=== PATIENT | female | born 1990 | race Two or more races ===

== ENCOUNTER 2019-08-04 09:39 | Emergency (ER) | payer MEDICAID, OTHER ==
[~2019-08-04] VITALS: Ht 154.9 cm; Wt 152.0 kg
[2019-08-04 09:53] VITALS: BP 144/88
[2019-08-04] MEDS ORDERED: cefTRIAXone SOD 1,000 MG VL IM ONE ×2 (12:00)
[2019-08-09] MEDS ORDERED: METF-370 PO (00:04)
[2019-08-09] MEDS ORDERED: IBUP800T24 PO (00:04)
[2019-08-09] MEDS ORDERED: CEPH500C PO (00:04)
== END 2019-08-04 12:37 | disposition home or self-care (01) ==
LOC: ER 09:39
DX: L03.311 Cellulitis of abdominal wall (principal)
CPT/HCPCS: 96372; 99283; J0696

== ENCOUNTER 2020-05-18 17:19 | Emergency (ER) | payer MEDICAID ==
[~2020-05-18 17:19] MED LIST: CEPH500C PO; IBUP800T24 PO; METF-370 PO
== END 2020-05-18 18:53 | disposition left against medical advice (07) ==
LOC: ER 17:19
DX: M79.602 Pain in left arm (principal); Z53.21 Procedure and treatment not carried out due to patient leaving prior to being seen by health care provider

== ENCOUNTER 2022-03-24 12:28 | Inpatient (IN) | payer MEDICAID ==
[~2022-03-24] VITALS: Ht 154.9 cm; Wt 151.6 kg
[2022-03-24 12:28] VITALS: BP 136/83
[~2022-03-24 12:28] MED LIST changes: -IBUP800T24 PO; +IBUP800T27 PO
[2022-03-24 13:39] LABS: Urine Bacteria NONE SEEN /hpf (None Seen); Urine Blood Negative /uL (Negative); Urine Mucus FEW (None Seen); Urine Specific Gravity 1.032 (1.001-1.035); Urine WBC 31 /hpf (0 - 5)
[2022-03-24 14:37] LABS: Basophils # (auto) 0.1 10 ^3/uL (0-0.2); Basophils % (auto) 0.6 % (0.0-2.0); Eosinophils # (auto) 0 10 ^3/uL (0-0.8); Eosinophils % (auto) 0.3 % (0.0-7.0); Hematocrit 39.6 % (36.0-46.0); Lymphocytes # (auto) 1.3 10 ^3/uL (0.4-5.4); Lymphocytes % (auto) 13.3 % (10.0-50.0); Mean Corpuscular Hemoglobin 27.7 pg (28.0-32.0); Mean Corpuscular Hgb Conc. 32.9 g/dL (32.0-36.0); Mean Corpuscular Volume 84.1 fL (80.0-100.0); Monocytes # (auto) 0.7 10 ^3/uL (0-1.3); Monocytes % (auto) 7.1 % (0.0-12.0); Neutrophils # (auto) 7.6 10 ^3/uL (1.6-8.6); Neutrophils % (auto) 78.7 % (37.0-80.0); Red Blood Cells 4.71 10^6/uL (4.0-5.20); Red Cell Distribution Width 13.1 % (11.8-14.3); White Blood Cell 9.7 10^3/uL (4.4-10.8)
[2022-03-24 14:53] LABS: Albumin 3.5 g/dL (3.4-5.0); Calcium 9.4 mg/dL (8.5-10.1); Potassium 3.6 mmol/L (3.5-5.1)
[2022-03-24 14:56] LABS: BUN/Creatinine Ratio 9.3
[2022-03-24 14:59] LABS: Bilirubin, Total 0.6 mg/dL (0.2-1.0)
[2022-03-24] MEDS ORDERED: SODIUM CHLORIDE 0.9% 1,000 ML IVB ONE (15:30)
[2022-03-24] MEDS ORDERED: KETOROLAC TROMETH 30 MG/ML 1ML VIAL IV ONE (15:30)
[2022-03-24] MEDS ORDERED: cefTRIAXone 1GM/50ML D5W 50 ML IV ONE (19:45)
[2022-03-24] MEDS ORDERED: SODIUM CHLORIDE 0.9% 1,000 ML IV SCH (20:15)
[2022-03-24] MEDS ORDERED: SODIUM CHLORIDE 0.9% 1,000 ML IV ONE (20:15)
[2022-03-24] MEDS ORDERED: MORPHINE SULFATE INJ 2 MG/ml SYRG IV PRN (20:15)
[2022-03-24] MEDS ORDERED: DOCUSATE SOD 100 MG CAP PO PRN (20:15)
[2022-03-24] MEDS ORDERED: ONDANSETRON HCL 4 MG/2 ML VIAL IV PRN (20:15)
[2022-03-24] MEDS ORDERED: DEXTROSE (50%) 50ML SYRG IV PRN ×2 (20:15→22:15)
[2022-03-25] MEDS ORDERED: ACCU-CHEK COMFORT CURVE STRIP VI SCH ×2
[2022-03-25] MEDS ORDERED: DICYCLOMINE HCL (10MG/ML) 2 ML AMPULE IM PRN
[2022-03-25] MEDS ORDERED: InsuLIN REG 1unit/0.01ml Soln (100units/ml) SC SCH ×2
[2022-03-25] MEDS ORDERED: cefTRIAXone 1GM/50ML D5W 50 ML IV SCH (09:00)
[2022-03-25] MEDS ORDERED: PANTOPRAZOLE 40 MG/10 ML VIAL INJ IV SCH (10:00)
[2022-03-25] MEDS ORDERED: ENOXAPARIN SOD 40 MG/0.4 ML SYRINGE SC SCH (10:00)
== END 2022-03-25 01:38 | disposition left against medical advice (07) | DRG 282 ==
LOC: ER 12:28 → OVERFLOW 20:18
PROVIDERS: ADMIT Nurse Practitioner Family; ATTEND Nurse Practitioner Family
DX: K85.90 Acute pancreatitis without necrosis or infection, unspecified (principal); N13.6 Pyonephrosis; K80.20 Calculus of gallbladder without cholecystitis without obstruction; N83.201 Unspecified ovarian cyst, right side; Z68.44 Body mass index [BMI] 60.0-69.9, adult; E11.9 Type 2 diabetes mellitus without complications; E66.01 Morbid (severe) obesity due to excess calories; E86.0 Dehydration
CPT/HCPCS: 36415; 74176; 76705; 80053; 81001; 82150; 82962; 83036; 83690; 85025; 96361; 96374; G0378; J1885

== ENCOUNTER 2022-03-28 22:11 | Emergency (ER) | payer MEDICAID ==
[~2022-03-28] VITALS: Ht 154.9 cm; Wt 152.4 kg
[2022-03-28] MEDS ORDERED: ACETAMINOPHEN 325 MG TAB PO ONE (23:00)
[2022-03-29] MEDS ORDERED: LIDOCAINE 1% HCL (LOCAL ANESTH.) INJ 20ML MDV ID ONE (07:00)
[2022-03-29] MEDS ORDERED: cefTRIAXone SOD 1,000 MG VL IM ONE (07:00)
[2022-03-29] MEDS ORDERED: AZIT500T66 PO (07:15)
[2022-03-29] MEDS ORDERED: ACET-1080 PO (07:15)
[2022-03-29] MEDS ORDERED: BENZ100C19 PO (07:15)
[2022-03-29 07:24] VITALS: BP 126/69
== END 2022-03-29 07:27 | disposition home or self-care (01) ==
LOC: ER 22:11
DX: J03.90 Acute tonsillitis, unspecified (principal); E11.9 Type 2 diabetes mellitus without complications; Z20.822 Contact with and (suspected) exposure to COVID-19
CPT/HCPCS: 36415; 82962; 87426; 87804; 96372; 99283; J0696; J2001

== ENCOUNTER 2022-09-23 13:22 | Inpatient (IN) | payer MEDICAID ==
[~2022-09-23] VITALS: Ht 154.9 cm; Wt 154.4 kg
[~2022-09-23 13:22] MED LIST changes: +ACET-1080 PO; +AZIT500T66 PO; +BENZ100C19 PO
[2022-09-23 14:42] LABS: Basophils # (auto) 0.1 10 ^3/uL (0-0.2); Eosinophils # (auto) 0.1 10 ^3/uL (0-0.8); Monocytes # (auto) 0.6 10 ^3/uL (0-1.3); Monocytes % (auto) 6.6 % (0.0-12.0); Neutrophils # (auto) 5.2 10 ^3/uL (1.6-8.6); Nucleated Red Blood Cells % 0.1 %
[2022-09-23 14:43] LABS: Eosinophils % (auto) 1.4 % (0.0-7.0); Hematocrit 37.3 % (36.0-46.0); Hemoglobin 11.8 g/dL (12.2-16.2); Lymphocytes # (auto) 2.4 10 ^3/uL (0.4-5.4); Mean Corpuscular Hemoglobin 24.7 pg (28.0-32.0); Mean Corpuscular Hgb Conc. 31.5 g/dL (32.0-36.0); Mean Corpuscular Volume 78.4 fL (80.0-100.0); Red Blood Cells 4.75 10^6/uL (4.0-5.20); Red Cell Distribution Width 15.7 % (11.8-14.3); White Blood Cell 8.4 10^3/uL (4.4-10.8)
[2022-09-23 15:00] LABS: Albumin 3.3 g/dL (3.4-5.0); Calcium 9.4 mg/dL (8.5-10.1); Potassium 3.4 mmol/L (3.5-5.1)
[2022-09-23 15:04] LABS: BUN/Creatinine Ratio 14.7 (10.0-20.0); Bilirubin, Total 0.4 mg/dL (0.2-1.0); Total Protein 7.8 g/dL (6.4-8.2)
[2022-09-23] MEDS ORDERED: SODIUM CHLORIDE 0.9% 1,000 ML IV ONE ×2 (16:00)
[2022-09-23] MEDS ORDERED: TAMSULOSIN HYDROCHLORIDE 0.4 MG CAP PO ONE (16:00)
[2022-09-23] MEDS ORDERED: KETOROLAC TROMETH 30 MG/ML 1ML VIAL IV ONE (16:00)
[2022-09-23] MEDS ORDERED: FUROSEMIDE 40 MG/4 ML VIAL IV ONE (16:00)
[2022-09-23] MEDS ORDERED: MORPHINE SULFATE INJ 2 MG/ml SYRG IV PRN ×2 (16:45)
[2022-09-23] MEDS ORDERED: ACETAMINOPHEN 325 MG TAB PO PRN (16:45)
[2022-09-23] MEDS ORDERED: NITROGLYCERIN 0.4 MG SL TAB SL PRN (16:45)
[2022-09-23] MEDS ORDERED: KETOROLAC TROMETH 30 MG/ML 1ML VIAL IV PRN (16:45)
[2022-09-23] MEDS ORDERED: HYDROcodone-ACET 5/325MG TAB PO PRN (16:45)
[2022-09-23] MEDS ORDERED: TEMAZEPAM 15 MG CAP PO PRN (16:45)
[2022-09-23] MEDS: SODIUM CHLORIDE 0.9% 1,000 ML IV SCH (17:26)
[2022-09-23 20:41] LABS: Urine Bacteria FEW /hpf (None Seen); Urine Blood TRACE /uL (Negative); Urine Hyaline Cast FEW /lpf (0 - 2); Urine Specific Gravity 1.007 (1.001-1.035); Urine WBC 2 /hpf (0 - 5)
[2022-09-24] MEDS: SODIUM CHLORIDE 0.9% 1,000 ML IV SCH ×3 (00:53→18:16)
[2022-09-24 06:01] LABS: Basophils # (auto) 0.1 10 ^3/uL (0-0.2); Basophils % (auto) 0.7 % (0.0-2.0); Eosinophils # (auto) 0.1 10 ^3/uL (0-0.8); Eosinophils % (auto) 1.1 % (0.0-7.0); Hematocrit 32.7 % (36.0-46.0); Lymphocytes # (auto) 1.5 10 ^3/uL (0.4-5.4); Lymphocytes % (auto) 16.9 % (10.0-50.0); Mean Corpuscular Hemoglobin 25.7 pg (28.0-32.0); Mean Corpuscular Hgb Conc. 33.5 g/dL (32.0-36.0); Mean Corpuscular Volume 76.7 fL (80.0-100.0); Monocytes # (auto) 0.4 10 ^3/uL (0-1.3); Monocytes % (auto) 5.1 % (0.0-12.0); Neutrophils # (auto) 6.7 10 ^3/uL (1.6-8.6); Neutrophils % (auto) 76.2 % (37.0-80.0); Red Blood Cells 4.26 10^6/uL (4.0-5.20); White Blood Cell 8.7 10^3/uL (4.4-10.8)
[2022-09-24 06:14] LABS: Albumin 3.2 g/dL (3.4-5.0); Calcium 8.7 mg/dL (8.5-10.1); Potassium 3.2 mmol/L (3.5-5.1)
[2022-09-24 06:19] LABS: BUN/Creatinine Ratio 17.9 (10.0-20.0); Bilirubin, Total 0.6 mg/dL (0.2-1.0); Total Protein 7.2 g/dL (6.4-8.2)
[2022-09-24] MEDS: ENOXAPARIN SOD 40 MG/0.4 ML SYRINGE SC SCH (13:36)
[2022-09-24] MEDS ORDERED: POTASSIUM CHL 20 Meq TABLET PO ONE (14:45)
[2022-09-24] MEDS ORDERED: DEXTROSE (50%) 50ML SYRG IV PRN (15:15)
[2022-09-24 16:20] VITALS: BP 134/89
[2022-09-24] MEDS: TAMSULOSIN HYDROCHLORIDE 0.4 MG CAP PO SCH (18:00)
[2022-09-24] MEDS: InsuLIN REG 1unit/0.01ml Soln (100units/ml) SC SCH ×2 (18:09→22:07)
[2022-09-24] MEDS: ACCU-CHEK COMFORT CURVE STRIP VI SCH ×2 (18:09→22:04)
[2022-09-24 22:00] VITALS: BP 133/77
[2022-09-25] MEDS: SODIUM CHLORIDE 0.9% 1,000 ML IV SCH ×3 (01:45→16:12)
[2022-09-25 05:00] VITALS: BP 142/74
[2022-09-25] MEDS: ACCU-CHEK COMFORT CURVE STRIP VI SCH ×4 (06:28→21:24)
[2022-09-25] MEDS: InsuLIN REG 1unit/0.01ml Soln (100units/ml) SC SCH ×4 (06:28→21:32)
[2022-09-25 08:00] VITALS: BP 131/79
[2022-09-25] MEDS: ENOXAPARIN SOD 40 MG/0.4 ML SYRINGE SC SCH (09:04)
[2022-09-25] MEDS ORDERED: PANTOPRAZOLE 40 MG TAB PO SCH (10:00)
[2022-09-25] MEDS ORDERED: TAM04C PO (10:18)
[2022-09-25 12:00] VITALS: BP 143/86
[2022-09-25 17:00] VITALS: BP 139/74
[2022-09-25] MEDS: TAMSULOSIN HYDROCHLORIDE 0.4 MG CAP PO SCH (17:50)
[2022-09-25 22:00] VITALS: BP 142/89
[2022-09-26 05:00] VITALS: BP 135/67
[2022-09-26] MEDS: SODIUM CHLORIDE 0.9% 1,000 ML IV SCH (06:12)
[2022-09-26] MEDS: ACCU-CHEK COMFORT CURVE STRIP VI SCH (06:12)
[2022-09-26] MEDS: InsuLIN REG 1unit/0.01ml Soln (100units/ml) SC SCH (06:13)
[2022-09-26] MEDS ORDERED: SODIUM CHLORIDE LOCK 10 ML ONE (08:14)
[2022-09-26] MEDS ORDERED: KETAMINE HCL 10 ML ONE (08:14)
[2022-09-26] MEDS ORDERED: MIDAZOLAM HCL 2MG/2ML 2ml VIAL (1mg/ml) ONE (08:14)
[2022-09-26] MEDS ORDERED: ONDANSETRON HCL 4 MG/2 ML VIAL ONE (08:14)
[2022-09-26] MEDS ORDERED: fentaNYL CITRATE 100 MCG/2 ML VL ONE (08:14)
[2022-09-26] MEDS ORDERED: PROPOFOL 10 MG/ML 20 ML IV ONE (08:14)
[2022-09-26] MEDS ORDERED: CIPROFLOXACIN 400MG/200ML 200 ML IV ONE (08:22)
[2022-09-26 08:34] LABS: INR 1.03 (0.9-1.15)
[2022-09-26] MEDS ORDERED: HYDROmorphone HCL 2 MG/ML VL/or syr IV PRN ×2 (09:00)
[2022-09-26] MEDS ORDERED: ACCU-CHEK COMFORT CURVE STRIP VI ONE (09:00)
[2022-09-26] MEDS ORDERED: METOCLOPRAMIDE HCL 5MG/ml INJ 2ml VIAL IV PRN (09:00)
[2022-09-26] MEDS ORDERED: MORPHINE SULFATE INJ 2 MG/ml SYRG IV PRN (09:00)
[2022-09-26] MEDS ORDERED: HYDR-4902 PO (10:57)
[2022-09-26 12:29] VITALS: BP 126/76
[2022-09-26 13:00] VITALS: BP 124/74
== END 2022-09-26 13:00 | disposition home or self-care (01) | DRG 446 ==
LOC: ER 13:22 → TELE 16:48 → TELE-CENTR 09-24 15:50
PROVIDERS: ADMIT Nurse Practitioner; ATTEND Nurse Practitioner
PROC: 0TC68ZZ Extirpation of Matter from Right Ureter, Via Natural or Artificial Opening Endoscopic (ICD-10-PCS; principal; 2022-09-26 09:16)
DX: N13.2 Hydronephrosis with renal and ureteral calculous obstruction (principal); Z68.44 Body mass index [BMI] 60.0-69.9, adult; E11.9 Type 2 diabetes mellitus without complications; I25.10 Atherosclerotic heart disease of native coronary artery without angina pectoris; Z20.822 Contact with and (suspected) exposure to COVID-19; E66.01 Morbid (severe) obesity due to excess calories; I10 Essential (primary) hypertension; K80.20 Calculus of gallbladder without cholecystitis without obstruction; M19.90 Unspecified osteoarthritis, unspecified site; Z79.84 Long term (current) use of oral hypoglycemic drugs
CPT/HCPCS: 36415; 71045; 74176; 80053; 81001; 82962; 83690; 84702; 85025; 85610; 85730; 86850; 86900; 86901; 87426; G0378; J1815; J1885; J2250; J2405; J2704

== ENCOUNTER 2024-08-21 21:02 | Emergency (ER) | payer MEDICAID ==
[~2024-08-21] VITALS: Ht 154.9 cm; Wt 151.1 kg
[~2024-08-21 21:02] MED LIST changes: -AZIT500T66 PO; -BENZ100C19 PO; -CEPH500C PO; +HYDR-4902 PO; -IBUP800T27 PO; +TAMS-35 PO
[2024-08-21] MEDS ORDERED: IBUP-1456 PO (22:45)
[2024-08-21] MEDS ORDERED: AUG875T PO (22:45)
--- NOTE | 2024-08-21 22:45 | ED.PDOC ---
Eye-HPI HPI Comments Pt presents to ED d/t tooth pain. Pain is located to right upper molar radiating to right ear. Redness, swelling, and odor noted. Pt took tylenol and ibuprofen at 1900, with no relief. Pain 10/. PMH of DM2. NKDA. Denies fever, chills, throat swelling, shortness of breath, difficulty swallowing and difficulty breathing. Chief Complaint: Tooth Pain Time Seen by MD: 22:02 Primary Care Provider: [facility] Reviewed Notes: Nurses Notes (In), Medications (Came), Allergies Allergies: Coded Allergies: No Known Drug Allergy (Verified Allergy, Unknown, 03/24/22) Home Meds Active Scripts Ibuprofen (Ibuprofen) 800 Mg Tab, 1 TAB PO TID PRN for 6 Days, #18 TAB Prov:KETAN MAYORGA TRIAL CONSULTANT 08/21/24 Amoxicillin & Pot Clavulanate (AUGMENTIN TABLET) 875 Mg Tb, 875 MG PO BID for 7 Days, #14 TAB Prov:KETAN MAYORGA 08/21/24 Hydrocodone-Acetaminophen (Hydrocodone Bitartrate/AC 5-325 mg) 1 Tab Tab, 1 TAB PO Q6HP PRN for 4 Days, #16 TAB Prov:AKANKSHA PADILLA SUPERVISOR BELT AND LINK ASSEMBLY 09/26/22 Tamsulosin Hcl (Flomax) 0.4 Mg Cap, 0.4 MG PO QPM for 30 Days, #30 CAP Prov:AKANKSHA PADILLA SUPERVISOR [employer]T AND LINK ASSEMBLY 09/25/22 Acetaminophen (Tylenol 8 Hour Arthritis) 650 Mg Tab, 650 MG PO TID, #30 TAB Prov:SWATI ALFARO PA 03/29/22 Reported Medications Metformin Hydrochloride (Metformin Hcl) 500 Mg Tab, 500 MG PO IBID for 30 Days, MG 08/09/19 Information Source: Patient Mode of Arrival: Ambulatory Past Medical History PAST MEDICAL HISTORY: DM Surgical History: Denies all surgeries FAMILY WELFARE SOCIAL WORK PROFESSOR History: Denies all FAMILY WELFARE SOCIAL WORK PROFESSOR Hx Family History Family History: Reviewed,noncontributory to illness Social History Smoker: Non-Smoker Alcohol: Denies ETOH Use Drugs: Denies Drug Use Lives In: Home Constitutional: denies: chills, diaphoresis, fatigue, fever, malaise, sweats, weakness, others EENTM: reports: others (Dental pain); denies: blurred vision, double vision, ear bleeding, ear discharge, ear drainage, ear pain, ear ringing, eye pain, eye redness, hearing loss, mouth pain, mouth swelling, nasal discharge, nose bleeding, nose congestion, nose pain, photophobia, tearing, throat pain, throat swelling, voice changes Respiratory: denies: cough, hemoptysis, orthopnea, SOB at rest, shortness of breath, SOB with excertion, stridor, wheezing, others Cardiovascular: denies: chest pain, dizzy spells, diaphoresis, Dyspnea on exertion, edema, irregular heart beat, left arm pain, lightheadedness, palpitations, PND, syncope, others Gastrointestinal: denies: abdomen distended, abdominal pain, blood streaked bowels, constipated, diarrhea, dysphagia, difficulty swallowing, hematemesis, melena, nausea, poor appetite, poor fluid intake, rectal bleeding, rectal pain, vomiting, others Genitourinary: denies: abnormal vagina bleeding, burning, dyspareunia, dysuria, flank pain, frequency, hematuria, incontinence, pain, , vagina discharge, urgency, others Neurological: denies: dizziness, fainting, headache, left sided numbness, left sided weakness, numbness, paresthesia, pre-existing deficit, right sided numbness, right sided weakness, seizure, speech problems, tingling, tremors, weakness, others Musculoskeletal: denies: back pain, gout, joint pain, joint swelling, muscle pain, muscle stiffness, neck pain, others Integumetry: denies: bruises, change in color, change in hair/nails, dryness, laceration, lesions, lumps, rash, wounds, others Allergic/Immunocompromised: denies: Difficulty Healing, Frequent Infections, Hives, Itching, others Hematologic/Lymphatic: denies: anemia, blood clots, easy bleeding, easy bruising, swollen glands, others Endocrine: denies: excessive hunger, excessive sweating, excessive thirst, excessive urination, flushing, intolerance to cold, intolerance to heat, unexplained weight gain, unexplained weight loss, others Psychiatric: denies: anxiety, bipolar disorder, depression, hopeless, panic disorder, schizophrenia, sleepless, suicidal, others Physical Exam General Appearance: No Apparent Distress, Normal HEENT: Pharynx Normal, TMs Normal Neck: Full Range of Motion, Non-Tender Respiratory: Lungs Clear, No Respiratory Distress, Normal Breath Sounds Cardiovascular: No Murmur, Normal Peripheral Pulses, Regular Rate/Rhythm Breast Exam: Deferred Gastrointestinal: Non Tender, Soft Genitalia: Deferred Pelvic: Deferred Rectal: Deferred Extremities: Normal range of motion Musculoskeletal : Apperance: Normal Neurologic: Alert, dealer compliance representative II-XII nml as Tested, No Motor Deficits, Normal Affect, Normal Mood, No Sensory Deficits Cerebellar Function: Normal Reflexes: Normal Skin: Dry, Normal Color, Warm Lymphatic: No Adenopathy Was a procedure done? Was a procedure done?: No EENT DIFF Eye: N/A Ear: N/A Mouth: N/A Sore Throat: Wicho's Angina X-Ray, Labs, Meds, VS Vital Signs Date Time Temp Pulse Resp B/P (MAP) Pulse Ox O2 Delivery O2 Flow Rate FiO2 08/21/24 21:13 99.2 82 16 158/98 (118) 96 X-Ray, Labs, Meds, VS Comment Patient given Toradol 60 mg IM and Rocephin 1 g IM. Script Augmentin twice daily x7 days along with ibuprofen 800 mg t.i.d. p.r.n.. Advised patient follow up with dental within 2-3 days for complete resolution. PCP 1-2 days as necessary. ER return precautions given patient indicates understanding agrees with discharge plan of care. Time of 1ST Reevaluation: 22:48 Reevaluation 1ST: Improved Patient Education/Counseling: Diagnosis, Treatment, Prognosis, Need For Follow Up Family Education/Counseling: No Family Present Departure 1 Departure Time of Disposition: 22:41 Impression: Primary Impression: Dental infection Disposition: HOME / SELF CARE / HOMELESS Condition: Stable e-Prescriptions Ibuprofen (Ibuprofen) 800 Mg Tab 1 TAB PO TID PRN for 6 Days, #18 TAB Prov: KETAN MAYORGA 08/21/24 Amoxicillin & Pot Clavulanate (AUGMENTIN TABLET) 875 Mg Tb 875 MG PO BID for 7 Days, #14 TAB Prov: KETAN MAYORGA 08/21/24 Discharged With: Self Critical Care Note Critical Care Time?: No Stability Stability form required: No (Numbing) KETAN MAYORGA Aug 21, 2024 22:45
[2024-08-21] MEDS: cefTRIAXone SOD 1,000 MG VL IM ONE (23:11)
[2024-08-21] MEDS: KETOROLAC TROMETH 60MG/2ML VIAL IM ONE (23:11)
[2024-08-21 23:12] VITALS: BP 158/98; PULSE 82; RESP 16; TEMP 99.2; O2SAT 96
[2024-08-21] MEDS: BENZOCAINE (DENTAL) 20 % SPRAY 60ML MT ONE (23:12)
== END 2024-08-21 23:23 | disposition home or self-care (01) ==
LOC: ER 21:02
DX: K04.7 Periapical abscess without sinus (principal); H92.01 Otalgia, right ear; E11.9 Type 2 diabetes mellitus without complications; Z79.84 Long term (current) use of oral hypoglycemic drugs; Z79.899 Other long term (current) drug therapy
CPT/HCPCS: 96372; 99284; J0696; J1885

== ENCOUNTER 2024-11-29 20:39 | Emergency (ER) | payer MEDICAID ==
[~2024-11-29] VITALS: Ht 154.9 cm; Wt 151.4 kg
[~2024-11-29 20:39] MED LIST changes: +AUG875T PO
--- NOTE | 2024-11-29 21:22 | ED.PDOC ---
History of Present Illness HPI Comments 34 y/o morbidly obese F presents with 3x month history of nonradiating, left flank pain. Pain is constant and sharp in quality, that worsens with pressure and touch to area. Only history of DM type II and kidney stones s/p lithotripsy. No recent injuries, sick contact, travel, or relevant events endorsed. She denies any nausea, vomiting, diarrhea, urinary symptoms, fever, or chills. Time Seen by MD: 21:15 Primary Care Provider: [facility] Reviewed Notes: Nurses Notes, Medications, Allergies Allergies: Coded Allergies: No Known Drug Allergy (Verified Allergy, Unknown, 03/24/22) Home Meds Active Scripts Metformin Hydrochloride (METFORMIN HCL ER) 1,000 Mg Tab, 1 TAB PO DAILY for 90 Days, #90 TAB 3 Refills Prov:KEENA DANIELS MD 11/30/24 Gabapentin (Once-Daily) (Gabapentin) 300 Mg Tab, 300 MG PO Q6HP PRN, #60 TAB Prov:KEENA DANIELS MD 11/30/24 Cefdinir (Cefdinir) 300 Mg Cap, 1 CAP PO BID for 7 Days, #14 CAP Prov:KEENA DANIELS MD 11/30/24 Amoxicillin & Pot Clavulanate (AUGMENTIN TABLET) 875 Mg Tb, 875 MG PO BID for 7 Days, #14 TAB Prov:KETAN MAYORGA GYMNASTICS COACH OR INSTRUCTOR 08/21/24 Hydrocodone-Acetaminophen (Hydrocodone Bitartrate/AC 5-325 mg) 1 Tab Tab, 1 TAB PO Q6HP PRN for 4 Days, #16 TAB Prov:AKANKSHA PADILLA ATHLETICS DIRECTOR 09/26/22 Tamsulosin Hcl (Flomax) 0.4 Mg Cap, 0.4 MG PO QPM for 30 Days, #30 CAP Prov:AKANKSHA PADILLA ATHLETICS DIRECTOR 09/25/22 Acetaminophen (Tylenol 8 Hour Arthritis) 650 Mg Tab, 650 MG PO TID, #30 TAB Prov:SWATI ALFARO 03/29/22 Reported Medications Metformin Hydrochloride (Metformin Hcl) 500 Mg Tab, 500 MG PO IBID for 30 Days, MG 08/09/19 Information Source: Patient Mode of Arrival: Ambulatory Severity: Moderate Timing: Months Duration: Since onset Prehospital treatment: None Past Medical History PAST MEDICAL HISTORY: DM, Kidney Stones Surgical History: Denies all surgeries LEVER MILLER History: Denies all LEVER MILLER Hx Family History Family History: Reviewed,noncontributory to illness Social History Smoker: Non-Smoker Alcohol: Denies ETOH Use Drugs: Denies Drug Use Lives In: Home All Other Systems: Reviewed and Negative (Comprehensive systems review obtained and negative except for what is stated in the HPI.) Physical Exam General Appearance: No Apparent Distress, Obese HEENT: Normal ENT Inspection, Pharynx Normal, TMs Normal Neck: Full Range of Motion, Non-Tender, Normal, Normal Inspection Respiratory: Chest Non-Tender, Lungs Clear, No Accessory Muscle Use, No Res piratory Distress, Normal Breath Sounds Cardiovascular: No Edema, No JVD, No Murmur, No Gallop, Normal Peripheral Pulses, Regular Rate/Rhythm Breast Exam: Deferred Gastrointestinal: No Organomegaly, Non Tender, No Pulsatile Mass, Normal Bowel Sounds, Soft Genitalia: Deferred Pelvic: Deferred Rectal: Deferred Extremities: No calf tenderness, Normal capillary refill, Normal inspection, Normal range of motion, Non-tender, No pedal edema Musculoskeletal : Location: Left Extremity Location: Other (CVA) Apperance: Normal, Tenderness Neurologic: Alert, powerhouse attendant II-XII nml as Tested, No Motor Deficits, Normal Affect, Normal Mood, No Sensory Deficits Cerebellar Function: Normal Reflexes: Normal Skin: Dry, Normal Color, Warm Lymphatic: No Adenopathy Was a procedure done? Was a procedure done?: No Differential Dx Considerations may include: nephrolithiasis, musculoskeletal pain, UTI, among others X-Ray, Labs, Meds, VS Vital Signs Date Time Temp Pulse Resp B/P (MAP) Pulse Ox O2 Delivery O2 Flow Rate FiO2 11/30/24 01:20 Room Air* 0 21 11/30/24 01:09 78 20 96 Room Air 11/30/24 01:08 98.9 78 20 152/68 (96) 96 98.9 11/29/24 23:06 98.6 61 20 155/87 (109) 96 98.6 11/29/24 21:00 99.7 76 18 142/86 (104) 96 99.7 Lab Test 11/29/24 21:12 Range/Units White Blood Count 8.6 4.4-10.8 10^3/uL Red Blood Count 4.79 4.0-5.20 10^6/uL Hemoglobin 13.7 12.2-16.2 g/dL Hematocrit 39.5 36.0-46.0 % Mean Corpuscular Volume 82.4 80.0-100.0 fL Mean Corpuscular Hemoglobin 28.6 28.0-32.0 pg Mean Corpuscular Hemoglobin Concent 34.7 32.0-36.0 g/dL Red Cell Distribution Width 13.9 11.8-14.3 % Platelet Count 283 140-450 10^3/uL Mean Platelet Volume 8.3 6.9-10.8 fL Neutrophils (%) (Auto) 59.7 37.0-80.0 % Lymphocytes (%) (Auto) 31.7 10.0-50.0 % Monocytes (%) (Auto) 5.6 0.0-12.0 % Eosinophils (%) (Auto) 2.0 0.0-7.0 % Basophils (%) (Auto) 1.0 0.0-2.0 % Neutrophils # (Auto) 5.2 1.6-8.6 10 ^3/uL Lymphocytes # (Auto) 2.7 0.4-5.4 10 ^3/uL Monocytes # (Auto) 0.5 0-1.3 10 ^3/uL Eosinophils # (Auto) 0.2 0-0.8 10 ^3/uL Basophils # (Auto) 0.1 0-0.2 10 ^3/uL Nucleated Red Blood Cells 0.2 % Sodium Level 138 136-145 mmol/L Potassium Level 3.8 3.5-5.1 mmol/L Chloride Level 103 98-107 mmol/L Carbon Dioxide Level 24 20-31 mmol/L Anion Gap 11 5-15 Blood Urea Nitrogen 9 9-23 mg/dL Creatinine 0.70 0.550-1.02 mg/dL Glomerular Filtration Rate Calc 115 >90 mL/min BUN/Creatinine Ratio 12.9 10.0-20.0 Serum Glucose 313 H 74-106 mg/dL Calcium Level 9.5 8.7-10.4 mg/dL Total Bilirubin 0.2 0.2-1.0 mg/dL Aspartate Amino Transferase (AST) 24 13-40 U/L Alanine Aminotransferase (ALT) 46 H 7-40 U/L Alkaline Phosphatase 126 H 46-116 U/L Total Protein 7.4 5.7-8.2 g/dL Albumin 4.4 3.2-4.8 g/dL Lipase 53 12-53 U/L [facility] [id number] [facility] [address] Ph: [phone] DIAGNOSTIC IMAGING Diagnostic Imaging Report : [id number] Signed PATIENT: BRANDEN ROSALES ACCT: [id number] UNIT: [id number] : 1990 LOC: ER ROOM / BED: / AGE / SEX: 34 / F ADM STATUS: REG ER SERVICE 15 ORDERING PHYSICIAN: KEENA DANIELS MD PROCEDURE(s): ABPL - CT AB PEL WO CON-NO ORAL OR IV REASON: left flank pain ORDER NUMBER(s): [id number], ACCESSION NUMBER(s): [id number] CT SCAN ABDOMEN AND PELVIS WITHOUT CONTRAST CLINICAL HISTORY: left flank pain TECHNIQUE: Helical axial images are obtained from the lung bases through the pelvis without oral contrast. No intravenous contrast was administered. Coronal and sagittal reformatted images were generated from thin section reconstructions. One or more of the following radiation dose reduction techniques were used for this examination: automated exposure control, adjustment of the mA and/or kV according to patient size, use of iterative reconstruction technique. COMPARISON: CT CT AB PEL WO CON-NO ORAL OR IV on DOS: 09/23/22 FINDINGS: LOWER THORAX: Imaged lung bases are grossly clear. ABDOMEN AND PELVIS: Evaluation of visceral and vascular structures is limited due to lack of contrast administration. As visualized, the unenhanced liver, spleen, pancreas and adrenals appear grossly unremarkable. Gallbladder is again noted to be markedly distended and multiple stones. A partially calcified stone is again noted near the gallbladder neck. No hydroureteronephrosis or sizable, obstructing urinary tract calculi id entified. No evidence of abdominal aortic aneurysm. No evidence of bowel obstruction. Normal caliber appendix. No free intrap eritoneal air or fluid identified. No sizable bladder calculus. Fat containing right adnexal lesion is again identified. This measures approximately 4 cm in diameter. No destructive osseous lesions identified. IMPRESSION: No hydroureteronephrosis or sizable, obstructing urinary tract calculi identified. Chronic appearing hydropic gallbladder with cholelithiasis. Grossly stable appearing right ovarian mass which most likely represents a dermoid cyst. ATED BY: GIAN AREVALO MD DICTATED DATE/TIME: 11/30/2458 SIGNED BY: GIAN AREVALO MD SIGNED DATE/TIME: 11/30/2458 CC: Time of 1ST Reevaluation: 21:45 Reevaluation 1ST: Unchanged Patient Education/Counseling: Diagnosis, Treatment, Need For Follow Up Family Education/Counseling: Other (child present) Departure 1 Departure Time of Disposition: 23:30 Impression: Primary Impression: Dermoid cyst of right ovary Additional Impressions: Cholelithiasis Left flank pain Disposition: HOME / SELF CARE / HOMELESS Condition: Stable e-Prescriptions Metformin Hydrochloride (METFORMIN HCL ER) 1,000 Mg Tab 1 TAB PO DAILY for 90 Days, #90 TAB 3 Refills Prov: KEENA DANIELS MD 11/30/24 Gabapentin (Once-Daily) (Gabapentin) 300 Mg Tab 300 MG PO Q6HP PRN, #60 TAB Prov: KEENA DANIELS MD 11/30/24 Cefdinir (Cefdinir) 300 Mg Cap 1 CAP PO BID for 7 Days, #14 CAP Prov: KEENA DANIELS MD 11/30/24 Discharged With: Self Critical Care Note Critical Care Time?: No Stability Stability form required: No Heart Score Heart Score: Heart Score Response (Comments) Value History N/A 0 EKG N/A 0 Age N/A 0 Risk Factors N/A 0 Troponin N/A 0 Total 0 I personally scribed for KEENA DANIELS MD ([email or web address]) on 11/29/24 at 21:22. Electronically submitted by Terry Swartz ([email or web address]). I personally scribed for KEENA DANIELS MD ([email or web address]) on 11/30/24 at 01:14. Electronically submitted by Terry Swartz ([email or web address]). KEENA DANIELS MD Nov 29, 2024 21:22
[2024-11-29 21:28] LABS: Basophils # (auto) 0.1 10 ^3/uL (0-0.2); Eosinophils # (auto) 0.2 10 ^3/uL (0-0.8); Hematocrit 39.5 % (36.0-46.0); Hemoglobin 13.7 g/dL (12.2-16.2); Lymphocytes # (auto) 2.7 10 ^3/uL (0.4-5.4); Lymphocytes % (auto) 31.7 % (10.0-50.0); Mean Corpuscular Hemoglobin 28.6 pg (28.0-32.0); Mean Corpuscular Hgb Conc. 34.7 g/dL (32.0-36.0); Mean Corpuscular Volume 82.4 fL (80.0-100.0); Monocytes # (auto) 0.5 10 ^3/uL (0-1.3); Monocytes % (auto) 5.6 % (0.0-12.0); Neutrophils # (auto) 5.2 10 ^3/uL (1.6-8.6); Neutrophils % (auto) 59.7 % (37.0-80.0); Nucleated Red Blood Cells % 0.2 %; Platelet Count (auto) 283 10^3/uL (140-450); Red Blood Cells 4.79 10^6/uL (4.0-5.20); Red Cell Distribution Width 13.9 % (11.8-14.3); White Blood Cell 8.6 10^3/uL (4.4-10.8)
[2024-11-29 21:47] LABS: Albumin 4.4 g/dL (3.2-4.8); Anion Gap 11 (5-15); Aspartate Aminotransferase 24 U/L (13-40); BUN/Creatinine Ratio 12.9 (10.0-20.0); Calcium 9.5 mg/dL (8.7-10.4); Carbon Dioxide 24 mmol/L (20-31); Chloride 103 mmol/L (98-107); Lipase 53 U/L (12-53); Potassium 3.8 mmol/L (3.5-5.1); Sodium 138 mmol/L (136-145); Total Protein 7.4 g/dL (5.7-8.2)
[2024-11-29 21:48] LABS: Alanine Aminotransferase 46 U/L (7-40); Alkaline Phosphatase 126 U/L (46-116); Bilirubin, Total 0.2 mg/dL (0.2-1.0); Blood Urea Nitrogen 9 mg/dL (9-23); Glucose 313 mg/dL (74-106)
--- NOTE | 2024-11-30 01:01 | DVH ---
CT SCAN ABDOMEN AND PELVIS WITHOUT CONTRAST CLINICAL HISTORY: left flank pain TECHNIQUE: Helical axial images are obtained from the lung bases through the pelvis without oral cont rast. No intravenous contrast was administered. Coronal and sagittal reformatted images were generate d from thin section reconstructions. One or more of the following radiation dose reduction techniques were used for this examination: automated exposure control, adjustment of the mA and/or kV according to patient size, use of iterative reconstruction technique. COMPARISON: CT CT AB PEL WO CON-NO ORAL OR IV on DOS: 09/23/22 FINDINGS: LOWER THORAX: Imaged lung bases are grossly clear. ABDOMEN AND PELVIS: Evaluation of visceral and vascular structures is limited due to lack of contrast administration. As visualized, the unenhanced liver, spleen, pancreas and adrenals appear grossly unremarkable. Gallb ladder is again noted to be markedly distended and multiple stones. A partially calcified stone is ag ain noted near the gallbladder neck. No hydroureteronephrosis or sizable, obstructing urinary tract calculi identified. No evidence of abdominal aortic aneurysm. No evidence of bowel obstruction. Normal caliber appendix. No free intraperitoneal air or fluid iden tified. No sizable bladder calculus. Fat containing right adnexal lesion is again identified. This measures a pproximately 4 cm in diameter. No destructive osseous lesions identified. IMPRESSION: No hydroureteronephrosis or sizable, obstructing urinary tract calculi identified. Chronic appearing hydropic gallbladder with cholelithiasis. Grossly stable appearing right ovarian mass which most likely represents a dermoid cyst.
[2024-11-30 01:08] VITALS: BP 152/68; TEMP 98.9
[2024-11-30 01:09] VITALS: PULSE 78; RESP 20; O2SAT 96
[2024-11-30] MEDS ORDERED: GABA300T4 PO (01:17)
[2024-11-30] MEDS ORDERED: CEFD300C2 PO (01:17)
[2024-11-30] MEDS ORDERED: METF-490 PO (01:17)
== END 2024-11-30 01:26 | disposition home or self-care (01) ==
LOC: ER 20:42
DX: D27.0 Benign neoplasm of right ovary (principal); K80.20 Calculus of gallbladder without cholecystitis without obstruction; R10.9 Unspecified abdominal pain; E11.9 Type 2 diabetes mellitus without complications; E66.01 Morbid (severe) obesity due to excess calories; Z87.442 Personal history of urinary calculi; Z79.84 Long term (current) use of oral hypoglycemic drugs; Z79.899 Other long term (current) drug therapy; Z68.44 Body mass index [BMI] 60.0-69.9, adult
CPT/HCPCS: 36415; 74176; 80053; 83690; 85025